=== PATIENT | female | born 1965 | race Caucasian/White ===

== ENCOUNTER → 2022-06-03 12:22 | Outpatient (CLI) | payer MEDICARE, SELFPAY ==
--- NOTE | ~2022-06-03 | XR_ITS ---
XR ankle RT min 3V DATE: 06/03/2022 12:56 INDICATION: Right ankle and foot injury, pain TECHNIQUE: 4 views COMPARISON: None FINDINGS: Mild lateral soft tissue swelling. Small linear cortical avulsion fracture at the tip of the lateral malleolus. There is ankle joint eff usion. No other fracture or dislocation. The ankle mortise is intact. IMPRESSION: Small cortical avulsion fracture at the tip of the lateral malleolus and mild lateral sof t tissue swelling Ankle joint effusion Reviewed, dictated and finalized at location B. IMPRESSION: Small cortical avulsion fracture at the tip of the lateral malleolu s and mild lateral soft tissue swelling Ankle joint effusion
== END ==
PROVIDERS: PCP Family Medicine Adolescent Medicine; Visit Provider Physician Assistant
DX: M25.471 Effusion, right ankle (principal)
CPT/HCPCS: 73610